=== PATIENT | male | born 1950 | race Caucasian/White ===

== ENCOUNTER 2018-03-29 00:34 | Emergency (ER) | payer MEDICARE, OTHER ==
[~2018-03-29] VITALS: Ht 177.8 cm; Wt 80.7 kg
[~2018-03-29 00:34] MED LIST: ALPR0.5T PO; CIPR500T78 PO; CLON-378 PO; FAMO20TA5 PO; HYDR-91 PO; HYOS0.1216 PO; NITR-33 PO; PHEN200T27 PO; PROP20TA5 PO; TMSL.4C PO
[2018-03-29] MEDS ORDERED: LIDOCAINE UROJET 2% GEL 10 ML PKG TOP ONE (01:30)
--- NOTE | 2018-03-29 01:49 | ED GU-Male ---
General Chief Complaint: -Male Stated Complaint: CAN'T URINATE Nursing Triage Note: PT PRESENTS TO ER WITH THE COMPLAINT OF URINARY RETENTION. PT STATES HE WAS SEEN ON SATURDAY IN [facility] FOR RETENTION, WAS GIVEN CIPRO FOR UTI AND CATHETER PLACED. SAW DR ROMAN SATURDAY IN OFFICE, CATHETER WAS REMOVED AND SCHEDULED FOR PROSTRATE TESTING NEXT WEEK. PT WAS INSTRUCTED BY JESSIE TO COME TO ER IF HE COULD NOT URINATE TO HAVE ANOTHER CATHETER PLACED. Source: patient Exam Limitations: no limitations History of Present Illness Date Seen by Provider: Mar 29, 2018 Time Seen by Provider: 01:15 Initial Comments This 68 year old gentleman presents to emergency room with urinary retention. This has been an ongoing problem for him for the past few years. He is presently taking Flomax and under the treatment and workup of Dr. Lopez. Patient had a catheter placed for urinary retention on a recent trip. He presented to Dr. Lopez's office yesterday to have the catheter removed. He was instructed to present to the emergency room if he had problems after hours. Patient was initially able to urinate after catheter removal but his ability to urinate has diminished throughout the day. He is now very uncomfortable and unable to urinate. Allergies and Home Medications Allergies Coded Allergies: No Known Drug Allergies (Unverified , 01/05/14) Home Medications Alprazolam 0.5 Mg Tablet, 0.25 MG PO PRN PRN for ANXIETY, (Reported) Clonidine Hcl 0.2 Mg Tab, 0.2 MG PO DAILY, (Reported) Famotidine 20 Mg Tablet, 1 EACH PO BID Prescribed by: SHASHANK ARANDA on 04/25/14 1226 Hydrocodone Bit/Acetaminophen 1 Each Tablet, 1-2 EA PO Q4HR PRN Prescribed by: TOMY HART on 01/26/14 0958 Propranolol Hcl 20 Mg Tablet, 20 MG PO PRN PRN for PALPITATIONS, (Reported) Tamsulosin Hcl 0.4 Mg Cap, 0.4 MG PO DAILY Prescribed by: CHIDI WEST on 01/06/14 0829 Patient Home Medication List Home Medication List Reviewed: Yes Review of Systems Constitutional: no symptoms reported Genitourinary: see HPI Past Iouwbas-Gebvlg-Qruxqc Hx Patient Social History Alcohol Use: Denies Use Recreational Drug Use: No Smoking Status: Never a Smoker Recent Foreign Travel: No Contact w/Someone Who Travel: No Recent Infectious Disease Expo: No Recent Hopitalizations: No Immunizations Up To Date Tetanus Booster (TDap): Unknown PED Vaccines UTD: Yes Seasonal Allergies Seasonal Allergies: No Past Medical History Surgeries: Yes (CYSTO, BACK SX, TUMOR REMOVED FROM LEFT SHOULDER, KIDNEY STONE) Respiratory: No Cardiac: Yes Hypertension Neurological: Yes Genitourinary: Yes (urinary retention) Benign Prostatic Hyperpl, Kidney Stones Gastrointestinal: No Musculoskeletal: No Endocrine: No HEENT: No Cancer: No Psychosocial: Yes Anxiety Blood Disorders: No Physical Exam Vital Signs Vital Signs - First Documented 03/29/18 00:39 Temp 97.1 Pulse 78 Resp 20 B/P (MAP) 204/105 (138) Pulse Ox 97 O2 Delivery Room Air Capillary Refill : Less Than 3 Seconds Height, Weight, BMI Height: 5'10.00" Weight: 178lbs. oz. 80.783686sh; BMI Method:Stated General Appearance: WD/WN, mild distress HEENT: normal ENT inspection Cardiovascular: regular rate, rhythm, no edema, no murmur Respiratory: lungs clear, normal breath sounds, no respiratory distress Gastrointestinal: normal bowel sounds, soft, tenderness (suprapubic) Neurologic/Psychiatric: alert, normal mood/affect, oriented x 3 Skin: normal color, warm/dry Progress/Results/Core Measures Suspected Sepsis Recent Fever Within 48 Hours: No Infection Criteria Present: None New/Unexplained Altered Menta: No Sepsis Screen: No Definite Risk SIRS Temperature:97.1 Pulse: 78 Respiratory Rate: 20 Blood Pressure 204 /105 Mean: 138 Results/Orders Lab Results Laboratory Tests Test 03/29/18 01:46 Range/Units Urine Color YELLOW Urine Clarity CLEAR Urine pH 7 5-9 Urine Specific Gerlaw 1.015 L 1.016-1.022 Urine Protein NEGATIVE NEGATIVE Urine Glucose (UA) NEGATIVE NEGATIVE Urine Ketones NEGATIVE NEGATIVE Urine Nitrite POSITIVE H NEGATIVE Urine Bilirubin NEGATIVE NEGATIVE Urine Urobilinogen NORMAL NORMAL MG/DL Urine Leukocyte Esterase NEGATIVE NEGATIVE Urine RBC (Auto) NEGATIVE NEGATIVE Urine RBC NONE /HPF Urine WBC NONE /HPF Urine Squamous Epithelial Cells RARE /HPF Urine Crystals NONE /LPF Urine Bacteria NEGATIVE /HPF Urine Casts NONE /LPF Urine Mucus NEGATIVE /LPF Urine Culture Indicated NO My Orders Orders - DANIELLE DIEHL MD Lidocaine 2% (Urojet) (Xylocaine Urojet) (03/29/18 01:30) Ua Culture If Indicated (03/29/18 01:24) Medications Given in ED Current Medications Medications Dose Ordered Sig/Norberto Route Start Time Stop Time Status Last Admin Dose Admin Lidocaine HCl 10 ml ONCE ONCE TOP 03/29/18 01:30 03/29/18 01:31 DC 03/29/18 02:00 10 ML Vital Signs/I&O 03/29/18 03/29/18 00:39 02:49 Temp 97.1 97.1 Pulse 78 78 Resp 20 20 B/P (MAP) 204/105 (138) 180/93 (138) Pulse Ox 97 97 O2 Delivery Room Air Capillary Refill : Less Than 3 Seconds Blood Pressure Mean: 138 Progress Note : Progress Note Cooney catheter was placed without any difficulty. Patient had immediate relief. UA demonstrated no evidence of infection. Patient had notable hypertension. He reports he is often hypertensive when anxious or in healthcare encounters. He treats this with clonidine and has his medication with him. He took a dose of clonidine while in the exam room. Patient was dismissed with catheter in place with instructions to follow-up with Dr. Lopez. Departure Impression Primary Impression: Urinary retention Additional Impression: Hypertensive urgency Disposition: HOME, SELF-CARE Condition: Improved Departure-Patient Inst. Decision time for Depature: 02:15 Referrals: NO,LOCAL PHYSICIAN (PCP/Family) Primary Care Physician Patient Instructions: How to Care for Your Cooney Catheter, Male Add. Discharge Instructions: Leave the Cooney catheter in place and keep the bag lower than the level of your bladder. Follow-up with Dr. Lopez as soon as possible. Continue with your blood pressure medications as prescribed. Follow-up with your primary care provider for a repeat blood pressure check. All discharge instructions reviewed with patient and/or family. Voiced understanding. Copy Copies To 1: BERNIE LOPEZ MD, JOSHUA T MD Mar 29, 2018 01:49
[2018-03-29 01:54] LABS: BILIRUBIN,URINE NEGATIVE (NEGATIVE); CLARITY,URINE CLEAR; COLOR,URINE YELLOW; GLUCOSE, URINE (UA) NEGATIVE (NEGATIVE); KETONES,URINE NEGATIVE (NEGATIVE); LEUKOCYTE ESTERASE ,URINE NEGATIVE (NEGATIVE); NITRITE,URINE POSITIVE (NEGATIVE); PH,URINE 7 (5-9); PROTEIN,URINE NEGATIVE (NEGATIVE); UROBILINOGEN,URINE NORMAL (NORMAL)
[2018-03-29 02:03] LABS: BACTERIA,URINE NEGATIVE /HPF; SQUAMOUS EPITHELIAL CELL,UR RARE /HPF
[2018-03-29 02:49] VITALS: BP 180/93
--- OUTSIDE RECORDS SUMMARY | 2018-03-30 11:10 | XMS REPORT | Continuity of Care Document ---
Author Author [facility] Organization [facility] Address Unknown Phone Unavailable Allergies Active Description Code Type Severity Reaction Onset Reported/Identified Relationship to Patient Clinical Status Yes No Known Drug Allergies [id number] Drug Allergy Unknown N/A 01/05/2014 Medications There is no data. Problems Date Dx Coded Attending Type Code Diagnosis Diagnosed By 01/06/2014 BERNIE LOPEZ MD Ot 592.0 CALCULUS OF KIDNEY 01/06/2014 BERNIE LOPEZ MD Ot 592.1 CALCULUS OF URETER 01/06/2014 BERNIE LOPEZ MD Ot 593.9 RENAL URETERAL DIS NOS 01/26/2014 BERNIE LOPEZ MD, Ot 592.0 CALCULUS OF KIDNEY 04/25/2014 SHASHANK ARANDA DO Ot 300.00 ANXIETY STATE NOS 04/25/2014 SHASHANK ARANDA DO Ot 530.81 ESOPHAGEAL REFLUX 04/25/2014 SHASHANK ARANDA DO Ot 786.50 CHEST PAIN NOS 07/25/2014 BERNIE LOPEZ MD Ot 592.9 URINARY CALCULUS NOS 03/29/2018 BERNIE LOPEZ MD Ot 592.9 URINARY CALCULUS NOS 03/29/2018 BERNIE LOPEZ MD Ot 793.6 NOSP (ABN) FINDINGS ON RADIOLOGICAL OT 03/29/2018 BERNIE LOPEZ MD Ot 592.1 CALCULUS OF URETER 03/29/2018 BERNIE LOPEZ MD Ot V72.63 PRE-PROCEDURAL LABORATORY EXAMINATION 03/29/2018 BERNIE LOPEZ MD, Ot V72.81 PRMA-ZRA-PTNDOXQIK CARDIOVASCULAR 03/29/2018 BERNIE LOPEZ MD, Ot V72.83 EXAM PRE-OPERATIVE NEC 03/29/2018 BERNIE LOPEZ MD, Ot V72.84 EXAM PRE-OPERATIVE NOS 03/29/2018 BERNIE LOPEZ MD, Ot V74.8 SCREEN-BACTERIAL DIS NEC 03/29/2018 BERNIE LOPEZ MD Ot 592.0 CALCULUS OF KIDNEY 03/29/2018 BERNIE LOPEZ MD Ot V72.63 PRE-PROCEDURAL LABORATORY EXAMINATION 03/29/2018 BERNIE LOPEZ MD Ot V72.84 EXAM PRE-OPERATIVE NOS 03/29/2018 BERNIE LOPEZ MD Ot 592.0 CALCULUS OF KIDNEY 03/29/2018 Ot 592.9 URINARY CALCULUS NOS 03/29/2018 BERNIE LOPEZ MD Ot 592.9 URINARY CALCULUS NOS 03/29/2018 BERNIE LOPEZ MD Ot 793.6 NOSP (ABN) FINDINGS ON RADIOLOGICAL OT 03/29/2018 BERNIE LOPEZ MD, Ot 592.1 CALCULUS OF URETER 03/29/2018 BERNIE LOPEZ MD, Ot V72.63 PRE-PROCEDURAL LABORATORY EXAMINATION 03/29/2018 BERNIE LOPEZ MD Ot V72.81 [id number] CARDIOVASCULAR 03/29/2018 BERNIE LOPEZ MD Ot V72.83 EXAM PRE-OPERATIVE NEC 03/29/2018 BERNIE LOPEZ MD Ot V72.84 EXAM PRE-OPERATIVE NOS 03/29/2018 BRENIE LOPEZ MD Ot V74.8 SCREEN-BACTERIAL DIS NEC 03/29/2018 BERNIE LOPEZ MD Ot 592.0 CALCULUS OF KIDNEY 03/29/2018 BERNIE LOPEZ MD, Ot V72.63 PRE-PROCEDURAL LABORATORY EXAMINATION 03/29/2018 BERNIE LOPEZ MD, Ot V72.84 EXAM PRE-OPERATIVE NOS 03/29/2018 BERNIE LOPEZ MD, Ot 592.0 CALCULUS OF KIDNEY 03/29/2018 Ot 592.9 URINARY CALCULUS NOS Procedures There is no data. Results Test Result Range Complete urinalysis with reflex to culture - 03/29/18 01:46 Urine color determination YELLOW NRG Urine clarity determination CLEAR NRG Urine pH measurement by test strip 7 5-9 Specific gravity of urine by test strip 1.015 1.016- 1.022 Urine protein assay by test strip, semi-quantitative NEGATIVE NEGATIVE Urine glucose detection by automated test strip NEGATIVE NEGATIVE Erythrocytes detection in urine sediment by light microscopy NEGATIVE NEGATIVE Urine ketones detection by automated test strip NEGATIVE NEGATIVE Urine nitrite detection by test strip POSITIVE NEGATIVE Urine total bilirubin detection by test strip NEGATIVE NEGATIVE Urine urobilinogen measurement by automated test strip (mass/volume) NORMAL NORMAL Urine leukocyte esterase detection by dipstick NEGATIVE NEGATIVE Automated urine sediment erythrocyte count by microscopy (number/high power field) NONE NRG Automated urine sediment leukocyte count by microscopy (number/high power field ) NONE NRG Bacteria detection in urine sediment by light microscopy NEGATIVE NRG Squamous epithelial cells detection in urine sediment by light microscopy RARE NRG Crystals detection in urine sediment by light microscopy NONE NRG Casts detection in urine sediment by light microscopy NONE NRG Mucus detection in urine sediment by light microscopy NEGATIVE NRG Complete urinalysis with reflex to culture NO NRG Encounters ACCT No. Visit Date/Time Discharge Status Pt. Type Provider Facility Loc./Unit Complaint [id number] 03/29/2018 00:37:00 03/29/2018 02:49:00 DIS Emergency DANIELLE DEIHL MD [facility] ER CAN'T URINATE [id number] 04/29/2014 08:43:00 07/25/2014 00:01:00 DIS Outpatient BERNIE LOPEZ MD [facility] RAD STONES [id number] 04/25/2014 11:16:00 04/25/2014 12:30:00 DIS Emergency SHASHANK ARANDA DO [facility] ER CHEST PAIN [id number] 02/15/2014 12:48:00 02/15/2014 23:59:59 CLS Outpatient BERNIE LOPEZ MD [facility] RAD RT MARY STONE [id number] 01/26/2014 06:21:00 01/26/2014 10:50:00 DIS Outpatient BERNIE LOPEZ MD [facility] SDC RIGHT STONE [id number] 01/25/2014 07:27:00 01/25/2014 23:59:59 CLS Outpatient BERNIE LOPEZ MD [facility] PREOP RIGHT STONE [id number] 01/06/2014 06:00:00 01/06/2014 11:15:00 DIS Outpatient BERNIE LOPEZ MD [facility] SDC RIGHT STONE [id number] 01/05/2014 10:36:00 01/05/2014 23:59:59 CLS Outpatient BERNIE LOPEZ MD [facility] PREOP RIGHT STONE [id number] 01/05/2014 08:50:00 01/05/2014 23:59:59 CLS Outpatient BERNIE LOPEZ MD [facility] RAD STONES [id number] 07/26/2014 00:00:00 Document Registration
== END 2018-03-29 02:49 | disposition home or self-care (01) ==
LOC: EDUNIT# 00:34 → ER 00:37
DX: R33.9 Retention of urine, unspecified (principal); I16.0 Hypertensive urgency; I10 Essential (primary) hypertension; F41.9 Anxiety disorder, unspecified; Z87.442 Personal history of urinary calculi
CPT/HCPCS: 51702; 81000

== ENCOUNTER 2018-04-04 12:48 | Outpatient (CLI) | payer MEDICARE, OTHER ==
[~2018-04-04] VITALS: Ht 177.8 cm; Wt 80.7 kg
[2018-04-04 13:01] VITALS: BP 129/85
[2018-04-04] MEDS ORDERED: PROP20TA5 PO (13:08)
[2018-04-04] MEDS ORDERED: ALPR0.254 PO (13:08)
[2018-04-04] MEDS ORDERED: CLON0.2T PO (13:08)
== END 2018-04-04 13:15 | disposition home or self-care (01) ==
LOC: PREOP 12:48
PROVIDERS: ATTEND Urology
DX: Z01.818 Encounter for other preprocedural examination (principal)
CPT/HCPCS: 87081

== ENCOUNTER 2018-04-07 06:00 | Day surgery (SDC) | payer MEDICARE, OTHER ==
[~2018-04-07] VITALS: Ht 177.8 cm; Wt 80.7 kg
[2018-04-07] VITALS (7 sets, daily range): BP systolic 159–210; BP diastolic 95–116
[~2018-04-07 06:00] MED LIST changes: +ALPR0.254 PO; +CLON0.2T PO
[2018-04-07 06:35] LABS: BASOPHILS % (AUTO) 1 % (0-10); EOSINOPHILS # (AUTO) 0.4 10^3/uL (0.0-0.3); EOSINOPHILS % (AUTO) 5 % (0-10); HEMATOCRIT 46 % (40-54); HEMOGLOBIN 15.7 G/DL (13.3-17.7); LYMPHOCYTES % (AUTO) 27 % (12-44); MEAN CORPUSCULAR HEMOGLOBIN 30 PG (25-34); MEAN CORPUSCULAR HGB CONC 34 G/DL (32-36); MEAN CORPUSCULAR VOLUME 88 FL (80-99); MEAN PLATELET VOLUME 10.1 FL (7.4-10.4); MONOCYTES # (AUTO) 1.2 X 10^3 (0.0-1.0); MONOCYTES % (AUTO) 17 % (0-12); NEUTROPHILS # (AUTO) 3.6 X 10^3 (1.8-7.8); NEUTROPHILS % (AUTO) 50 % (42-75); PLATELET COUNT 294 10^3/uL (130-400); RED BLOOD COUNT 5.28 10^6/uL (4.35-5.85); RED CELL DISTRIBUTION WIDTH 13.2 % (10.0-14.5); WHITE BLOOD COUNT 7.2 10^3/uL (4.3-11.0)
[2018-04-07] MEDS ORDERED: cefTRIAXone INJECTION 1,000 MG in NS (IVPB) 50 ML IV ONE (06:45)
[2018-04-07] MEDS ORDERED: MIDAZOLAM 2 MG/2 ML (VERSED) VIAL ONE ×2 (06:46→07:35)
[2018-04-07] MEDS ORDERED: LACTATED RINGERS 1,000 ML IV SCH (07:00)
[2018-04-07] MEDS ORDERED: MIDAZOLAM 2 MG/2 ML (VERSED) VIAL IVP ONE (07:00)
[2018-04-07] MEDS ORDERED: LIDOCAINE PF 2% 5 ML (XYLOCAINE) VIAL ONE ×2 (07:04→07:44)
[2018-04-07] MEDS ORDERED: proPOfol 200 MG/20 ML (DIPRIVAN) VIAL IV ONE (07:04)
[2018-04-07] MEDS ORDERED: BUPIVACAINE 0.5% 30 ML (SENSORCAINE) VIAL ONE (07:04)
[2018-04-07] MEDS ORDERED: PROPOFOL INJECTION 0 ML IV ONE (07:04)
--- NOTE | 2018-04-07 07:09 | Progress Note-Pre Operative ---
Pre-Operative Progress Note H&P Reviewed The H&P was reviewed, patient examined and no changes noted. Date Seen by Provider: Apr 07, 2018 Time Seen by Provider: 07:09 Date H&P Reviewed: Apr 07, 2018 Time H&P Reviewed: 07:09 Pre-Operative Diagnosis: URINE RETENTION WITH BPH BERNIE LOPEZ MD Apr 07, 2018 7:09 am
--- NOTE | 2018-04-07 07:11 | Progress Note-Post Operative ---
Post-Operative Progess Note Surgeon (s)/Surfacer (s) Surgeon BERNIE LOPEZ MD Surfacer: N/A Pre-Operative Diagnosis URINE RETENTION WITH BPH Post-Operative Diagnosis SAME Procedure & Operative Findings Date of Procedure 04/07/18 Procedure Performed/Findings TURP Anesthesia Type SPINAL Estimated Blood Loss Estimated blood loss (mL): LESS ROSALINE 50cc Specimens/Packing Specimens Removed PROSTATE CHIPS Packing: N/A BERNIE LOPEZ MD Apr 07, 2018 7:11 am
[2018-04-07] MEDS ORDERED: MILK OF MAGNESIA 400 MG/5 ML 30 ML UDC PO PRN (07:15)
[2018-04-07] MEDS ORDERED: ZOLPIDEM 5 MG (AMBIEN) TAB PO PRN (07:15)
[2018-04-07] MEDS ORDERED: LACTATED RINGERS 1,000 ML IV ONE (07:57)
[2018-04-07] MEDS: LACTATED RINGERS 1,000 ML IV SCH ×5 (08:10→23:08)
[2018-04-07] MEDS ORDERED: ALPRAZolam 0.25 MG (XANAX) TAB PO PRN (10:00)
[2018-04-07] MEDS ORDERED: PROPRANOLOL 20 MG (INDERAL) TABLET PO PRN ×2 (10:00→10:15)
[2018-04-07] MEDS ORDERED: PATIENT MAY USE OWN MEDS, ALL MC SCH (10:15)
[2018-04-07] MEDS: DOCUSATE SODIUM 100 MG (COLACE) CAP PO SCH ×2 (10:16→21:01)
[2018-04-07] MEDS: cloNIDine 0.2 MG (CATAPRES) TAB PO SCH ×2 (10:20→21:01)
[2018-04-07] MEDS: ALPRAZolam 0.25 MG (XANAX) TAB PO PRN ×2 (10:34→18:59)
--- NOTE | 2018-04-07 13:08 | OPERATIVE REPORT ---
DATE OF SERVICE: 04/07/2018 PREOPERATIVE DIAGNOSIS: Benign prostatic hypertrophy with urinary retention. POSTOPERATIVE DIAGNOSIS: Benign prostatic hypertrophy with urinary retention. OPERATION PERFORMED: Transurethral resection of the prostate. SURGEON: Bernie Lopez MD. ANESTHESIA: Spinal. COMPLICATIONS: None. DESCRIPTION OF PROCEDURE: Under satisfactory spinal anesthesia, the patient in lithotomy position, genitalia were prepped and draped in the usual sterile fashion. Urethra was dilated with Dulce Maria sounds to #30 Egyptian easily, 27-Egyptian Fields resectoscope was introduced in the bladder. Again, visualized a trilobar enlargement of the prostate with the median lobe projecting and causing obstruction. I went ahead and resected the median lobe first completely, then resected the lateral lobe from 1-6 o'clock position, starting from the roof and then working down to the apex. Bleeders were cauterized as the resection was proceeding. Prostatic chips were evacuated and cystoscopy confirmed intact ureteric orifices, veru and sphincter with good reflux. The resectoscope was then removed and a 22-Egyptian 3-way 30 mL balloon catheter was inserted. The balloon inflated to 40 mL and put on light traction and CBI the return of which was clear. Estimated blood loss was less than 50 mL, none of which was replaced. The patient tolerated the procedure and anesthesia well and was sent to recovery room in stable condition. Job ID: [id number] DocumentID: [id number] Dictated Date: 04/07/2018 08:43:39 Straight Ruling Machine Operator Date: 04/07/2018 13:08:01 Dictated By: BERNIE LOPEZ MD
[2018-04-07] MEDS: HYDROcodone/APAP 10 MG/325 MG (LORTAB) TAB PO PRN ×2 (13:23→21:06)
--- NOTE | 2018-04-07 14:34 | Anesthesia-Regional Post-Op ---
Regional Patient Condition Mental Status: Alert, Oriented x3 Circulation: Same as Pre-Op Headache: Absent Sensation: Full Recovery Motor Block: Absent Post Op Complications Complications None Follow Up Care/Instructions Patient Instructions None needed. Anesthesia/Patient Condition Patient is doing well, no complaints, stable vital signs, no apparent adverse anesthesia problems. No complications reported per nursing. CLAUDIA HOUSE CRNA Apr 07, 2018 14:34
[2018-04-07] MEDS ORDERED: NITROGLYCERIN 2% OINT 1 GM UNIT DOSE PACKET ONE (15:51)
[2018-04-07] MEDS: NITROGLYCERIN 2% OINT 1 GM UNIT DOSE PACKET TOP PRN ×2 (15:57→21:46)
[2018-04-07] MEDS ORDERED: PHENAZOPYRIDINE 100 MG (PYRIDIUM) TABLET PO PRN (16:15)
[2018-04-07] MEDS ORDERED: LIDOCAINE UROJET 2% GEL 10 ML PKG TOP PRN (16:15)
[2018-04-07] MEDS ORDERED: KETOROLAC 30 MG/ML VIAL IVP PRN (16:15)
[2018-04-07] MEDS ORDERED: hydrALAZINE (APESOLINE) 20 MG/ML VIAL IV NR ×2 (17:00→19:15)
[2018-04-07] MEDS ORDERED: NITROGLYCERIN 2% OINT 1 GM UNIT DOSE PACKET TOP SCH (18:00)
[2018-04-08] VITALS (8 sets, daily range): BP systolic 113–183; BP diastolic 71–89
[2018-04-08] MEDS: LACTATED RINGERS 1,000 ML IV SCH (06:22)
[2018-04-08] MEDS ORDERED: LEVOFLOXACIN 500 MG/100 ML IV 100 ML IV ONE (07:15)
[2018-04-08] MEDS: cloNIDine 0.2 MG (CATAPRES) TAB PO SCH (07:31)
[2018-04-08] MEDS: ALPRAZolam 0.25 MG (XANAX) TAB PO PRN (07:32)
[2018-04-08] MEDS: DOCUSATE SODIUM 100 MG (COLACE) CAP PO SCH (07:34)
[2018-04-08] MEDS: NITROGLYCERIN 2% OINT 1 GM UNIT DOSE PACKET TOP PRN (07:35)
--- NOTE | 2018-04-08 07:48 | Progress Note-Urology ---
Progress Note-Urology Progress Notes/Assess & Plan Progress/Assessment & Plan AFEBRILE, VSS. DOING WELL. URINE TINGED. PLAN PER ORDERS Final Diagnosis BPH WITH URINE RETENTION BERNIE LOPEZ MD Apr 08, 2018 7:48 am
--- NOTE | 2018-04-08 10:27 | Consultation-Hospitalist ---
HPI History of Present Illness: HPI/Chief Complaint Pt is a 68yoCM with a PMH of HTN who underwent TURP yesterday with Dr Adkins. I am consulted for medical management. Postoperatively he developed severe hypertension but was asymptomatic. He had held his morning BP in preparation for surgery but otherwise has not missed any medications. He states he was very anxious with the BP checks and felt that that may be why it was so high. His BP improved overnight after two dose of IV Hydralazine and nitropaste. His blood pressure was elevated this morning again prior to his AM medications. He still denies any symptoms and at home his BP is very well controlled. Source: patient Exam Limitations: no limitations Date Seen 04/08/18 Attending Physician Gwyn Adkins MD PCP No,Local Physician Referring Physician Dr Adkins Date of Admission Home Medications & Allergies Home Medications Reviewed patient Home Medication Reconciliation performed by pharmacy medication reconciliations small electric engine technician and/or nursing. Patients Allergies have been reviewed. Allergies Allergies Coded Allergies morphine (Verified Allergy, Unknown, NAUSEA, 04/04/18) sulfamethoxazole (Verified Allergy, Unknown, hives, 04/04/18) trimethoprim (Verified Allergy, Unknown, hives, 04/04/18) Past Zkrkftl-Zwfrch-Dxtmsq Hx Past Med/Social Hx: Reviewed Nursing Past Med/Soc Hx Patient Social History Alcohol Use: Denies Use Recreational Drug Use: No Smoking Status: Former Smoker Former Smoker, Quit: Apr 04, 1979 Recent Foreign Travel: No Contact w/other who traveled: No Recent Hopitalizations: No Recent Infectious Disease Expo: No Immunizations Up To Date Tetanus Booster (TDap): Unknown Pediatric: Yes Seasonal Allergies Seasonal Allergies: No Past Medical History Cardiac: Hypertension Genitourinary: Benign Prostatic Hyperpl, Kidney Stones Psychosocial: Anxiety History of Blood Disorders: No Family History Hypertension 19 FATHER Review of Systems Constitutional: No chills, No fever EENTM: No blurred vision, No double vision, No nose congestion, No throat pain Respiratory: No cough, No dyspnea on exertion, No short of breath Cardiovascular: No chest pain, No edema, No palpitations Gastrointestinal: No abdominal pain, No constipation, No diarrhea, No nausea, No vomiting Genitourinary: No dysuria, No frequency Musculoskeletal: No joint pain, No muscle pain Skin: No lesions, No rash Psychiatric/Neurological: Anxiety; Denies Headache, Denies Numbness, Denies Tingling Physical Exam Physical Exam Vital Signs Vital Signs - First Documented 04/07/18 06:20 Temp 97.7 Pulse 65 Resp 18 B/P (MAP) 209/114 (145) 208/116 (146) Pulse Ox 99 O2 Delivery Room Air Capillary Refill : Height, Weight, BMI Height: 5'10.00" Weight: 178lbs. 0.0oz. 80.283724me; 25.5 BMI Method:Stated General Appearance: No Apparent Distress, WD/WN HEENT: PERRL/EOMI, Moist Mucous Membranes Neck: Non Tender, Supple Respiratory: Lungs Clear, No Respiratory Distress Cardiovascular: Regular Rate, Rhythm, No Murmur Gastrointestinal: Normal Bowel Sounds, Non Tender, Soft Extremity: Normal Capillary Refill, No Calf Tenderness Neurologic/Psychiatric: Alert, Oriented x3, Normal Mood/Affect Skin: Normal Color, Warm/Dry Results Results/Procedures Labs Laboratory Tests 04/07/18 06:25 Patient resulted labs reviewed. Assessment/Plan Assessment and Plan Assess & Plan/Chief Complaint Hypertensive urgency Diagnosis/Problems Diagnosis/Problems (1) Hypertensive urgency Assessment & Plan: asymptomatic BP improving Anxiety likely contributing so will decrease checks Continue home meds Nitropaste available prn (2) BPH (benign prostatic hyperplasia) Status: Chronic Assessment & Plan: s/p TURP Management per Dr Adkins Clinical Quality Measures DVT/VTE Risk/Contraindication: Risk Factor Score Per Nursin RFS Level Per Nursing on Admit: 3=High JOSHUA AUGUSTE MD Apr 08, 2018 10:27 am
[2018-04-08] MEDS ORDERED: ONDANSETRON 4 MG/2 ML (SDV) Z0FRAN IVP NR ×2 (11:44→11:45)
--- NOTE | 2018-04-08 11:45 | Discharge Inst-Urology ---
Discharge Inst-Urology Discharge Medications New, Converted, or Re-newed RX: RX on Chart Patient Instructions/Follow Up Plan Please make appointment to been seen in office in 2 weeks. Rest till then Please get patient appointment with Dr Manish Fields to establish as new patient Keep bowels soft and moving Increase oral fluids for 48 hours and then as needed. Diet as tolerated. If questions or concerns contact your physician Or seek help at emergency department. BERNIE LOPEZ MD Apr 08, 2018 11:45 am
[2018-04-08] MEDS ORDERED: CIPR-225 PO (12:11)
[2018-04-08] MEDS ORDERED: ONDA4TAB8 SL (12:12)
== END 2018-04-08 12:45 ==
LOC: SDC 06:00 → 4TH 09:38 → SDC 04-08 12:45
PROVIDERS: ATTEND Urology
DX: N40.1 Benign prostatic hyperplasia with lower urinary tract symptoms (principal); R33.9 Retention of urine, unspecified; I16.0 Hypertensive urgency; I49.9 Cardiac arrhythmia, unspecified; F41.9 Anxiety disorder, unspecified; Z87.442 Personal history of urinary calculi; Z79.899 Other long term (current) drug therapy
CPT/HCPCS: 36415; 85025; 86850; 86900; 86901; 94664

== ENCOUNTER 2018-04-14 03:48 | Inpatient (IN) | payer MEDICARE, OTHER ==
[~2018-04-14] VITALS: Ht 177.8 cm; Wt 77.3 kg
[2018-04-14] VITALS (24 sets, daily range): BP systolic 107–204; BP diastolic 56–132
[~2018-04-14 03:48] MED LIST changes: +CIPR-225 PO; +ONDA4TAB8 SL
[2018-04-14] MEDS ORDERED: NITROGLYCERIN 0.4 MG SL TABS BTL 25'S SL ONE (03:58)
[2018-04-14] MEDS ORDERED: FAMOTIDINE 20 MG (PEPCID) TABLET PO STA (03:58)
[2018-04-14] MEDS ORDERED: ASPIRIN 81 MG CHEW (CHILDREN'S ASA) ONE (03:58)
[2018-04-14] MEDS ORDERED: ANTACID SUSP 30 ML UDC (MYLANTA) PO ONE (04:00)
[2018-04-14] MEDS ORDERED: ASPIRIN 81 MG CHEW (CHILDREN'S ASA) PO ONE (04:00)
[2018-04-14] MEDS ORDERED: LIDOCAINE 2% VISCOUS 15 ML UDC PO ONE (04:00)
--- NOTE | 2018-04-14 04:06 | ED Chest Pain ---
General Chief Complaint: Chest Pain Stated Complaint: CP Source: patient Exam Limitations: no limitations History of Present Illness Date Seen by Provider: Apr 14, 2018 Time Seen by Provider: 03:53 Initial Comments The patient presents to the ER by private conveyance with his and a chief complaint of chest pain starting about 1:00 this morning. He noted for the past day or so he's been having high blood pressure above 200 systolic. He does not have any prior coronary disease but last week he did have a TURP. While he was in the hospital for that he had some high blood pressure and they gave him a couple other medications but couldn't get it down and talked to to stress or anxiety. He does have some anxiety and a little bit of acid reflux for which she infrequently takes Zantac. He's not had any Zantac today. He does have high blood pressure however that he treats with clonidine twice a day unknown dose. He says he took an extra half dose at midnight and another half dose at 2:00 in the morning because his blood pressure was elevated. He describes the chest pain as a burning sensation in his midepigastrium up to his sternum. He is also having some numbness and tingling in his left arm. He's never had a heart catheterization. He does not smoke but he quit about 30 years ago. He does not have hyperthyroid, hypothyroid, hypercholesterolemia, diabetes. He also has propranolol prescribed to him as needed for palpitations but he has not used that in several days. Allergies and Home Medications Allergies Coded Allergies: morphine (Verified Allergy, Unknown, NAUSEA, 04/04/18) sulfamethoxazole (Verified Allergy, Unknown, hives, 04/04/18) trimethoprim (Verified Allergy, Unknown, hives, 04/04/18) Home Medications Alprazolam 0.25 Mg Tablet, 0.25 MG PO BID PRN for ANXIETY, (Reported) Ciprofloxacin HCl 500 Mg Tablet, 500 MG PO BID Prescribed by: JOSE RODRIGEZ on 04/08/18 1211 Clonidine HCl 0.2 Mg Tablet, 0.1 MG PO BID, (Reported) take 1/2 of .2mg tab Ondansetron 4 Mg Tab.rapdis, 4-8 MG SL Q4H PRN for NAUSEA/VOMITING-1ST LINE Prescribed by: JOSE RODRIGEZ on 04/08/18 1212 Propranolol HCl 20 Mg Tablet, 20 MG PO BID PRN for palpitations, (Reported) Patient Home Medication List Home Medication List Reviewed: Yes Review of Systems Constitutional: No chills, No diaphoresis EENTM: No Blurred Vision, No Nose Congestion, No Throat Pain, No Throat Swelling Respiratory: Denies Cough, Denies Shortness of Air Cardiovascular: See HPI, Chest Pain; Denies Edema, Denies Irregular Heart Rate , Denies Lightheadedness, Denies Palpitations, Denies Syncope Gastrointestinal: Denies Abdomen Distended, Denies Abdominal Pain, Denies Constipated, Denies Diarrhea Genitourinary: Denies Burning, Denies Discharge Musculoskeletal: No back pain, No gout Skin: No pruritus, No rash Psychiatric/Neurological: Denies Headache, Denies Numbness Hematologic/Lymphatic: Denies Anemia, Denies Blood Clots, Denies Easy Bleeding Past Vwsgshn-Wqvcdu-Jkubyw Hx Patient Social History Alcohol Use: Denies Use Recreational Drug Use: No Smoking Status: Former Smoker Former Smoker, Quit: Apr 04, 1979 Recent Hopitalizations: No Immunizations Up To Date Tetanus Booster (TDap): Unknown PED Vaccines UTD: Yes Seasonal Allergies Seasonal Allergies: No Past Medical History Surgeries: Yes (CYSTO, BACK SX, TUMOR REMOVED FROM LEFT SHOULDER, KIDNEY STONE) Respiratory: No Cardiac: Yes Hypertension Neurological: Yes Genitourinary: Yes (urinary retention) Benign Prostatic Hyperpl, Kidney Stones Gastrointestinal: No Musculoskeletal: No Endocrine: No HEENT: No Cancer: No Psychosocial: Yes Anxiety Blood Disorders: No Family Medical History Hypertension 19 FATHER Physical Exam Vital Signs Vital Signs - First Documented 04/14/18 03:50 Temp 98.2 Pulse 61 Resp 14 B/P (MAP) 239/125 (163) Pulse Ox 99 O2 Delivery Room Air Capillary Refill : Less Than 3 Seconds Height, Weight, BMI Height: 5'10.00" Weight: 178lbs. 0.0oz. [id number]; 25.5 BMI Method:Stated General Appearance: WD/WN, Anxious HEENT: PERRL/EOMI, Pharynx Normal, Moist Mucous Membranes Neck: Full Range of Motion, Normal Inspection Respiratory: Chest Non Tender, Lungs Clear, Normal Breath Sounds, No Accessory Muscle Use, No Respiratory Distress Cardiovascular: Regular Rate, Rhythm, No Edema, No Murmur, Normal Peripheral Pulses Gastrointestinal: Normal Bowel Sounds, Non Tender, Soft Extremity: Normal Capillary Refill, Normal Inspection, Normal Range of Motion, No Pedal Edema Neurologic/Psychiatric: Alert, Oriented x3, No Motor/Sensory Deficits, Other ( anxious affect) Skin: Normal Color, Warm/Dry Progress/Results/Core Measures Results/Orders Lab Results Laboratory Tests Test 04/14/18 04:12 Range/Units White Blood Count 5.9 4.3-11.0 10^3/uL Red Blood Count 4.98 4.35-5.85 10^6/uL Hemoglobin 15.3 13.3-17.7 G/DL Hematocrit 43 40-54 % Mean Corpuscular Volume 85 80-99 FL Mean Corpuscular Hemoglobin 31 25-34 PG Mean Corpuscular Hemoglobin Concent 36 32-36 G/DL Red Cell Distribution Width 12.6 10.0-14.5 % Platelet Count 345 130-400 10^3/uL Mean Platelet Volume 10.4 7.4-10.4 FL Neutrophils (%) (Auto) 59 42-75 % Lymphocytes (%) (Auto) 25 12-44 % Monocytes (%) (Auto) 12 0-12 % Eosinophils (%) (Auto) 4 0-10 % Basophils (%) (Auto) 1 0-10 % Neutrophils # (Auto) 3.4 1.8-7.8 X 10^3 Lymphocytes # (Auto) 1.5 1.0-4.0 X 10^3 Monocytes # (Auto) 0.7 0.0-1.0 X 10^3 Eosinophils # (Auto) 0.2 0.0-0.3 10^3/uL Basophils # (Auto) 0.0 0.0-0.1 10^3/uL Prothrombin Time 13.7 12.2-14.7 SEC INR Comment 1.1 0.8-1.4 Activated Partial Thromboplast Time 33 24-35 SEC Sodium Level 138 135-145 MMOL/L Potassium Level 3.9 3.6-5.0 MMOL/L Chloride Level 105 98-107 MMOL/L Carbon Dioxide Level 20 L 21-32 MMOL/L Anion Gap 13 5-14 MMOL/L Blood Urea Nitrogen 14 7-18 MG/DL Creatinine 0.80 0.60-1.30 MG/DL Estimat Glomerular Filtration Rate > 60 BUN/Creatinine Ratio 18 Glucose Level 116 H 70-105 MG/DL Calcium Level 10.1 8.5-10.1 MG/DL Magnesium Level 2.1 1.8-2.4 MG/DL Total Bilirubin 1.1 H 0.1-1.0 MG/DL Aspartate Amino Transf (AST/SGOT) 16 5-34 U/L Alanine Aminotransferase (ALT/SGPT) 22 0-55 U/L Alkaline Phosphatase 74 40-136 U/L Myoglobin 24.9 10.0-92.0 NG/ML Troponin I < 0.30 <0.30 NG/ML Total Protein 7.0 6.4-8.2 GM/DL Albumin 4.5 3.2-4.5 GM/DL Lipase 12 8-78 U/L My Orders Orders - KARMA LYONS Cbc With Automated Diff (04/14/18 03:58) Magnesium (04/14/18 03:58) Chest 1 View, Ap/Pa Only (04/14/18 03:58) Ekg Tracing (04/14/18 03:58) Cardiac Profile 1 (04/14/18 03:58) Comprehensive Metabolic Panel (04/14/18 03:58) Myoglobin Serum (04/14/18 03:58) Protime With Inr (04/14/18 03:58) Partial Thromboplastin Time (04/14/18 03:58) O2 (04/14/18 03:58) Monitor-Rhythm Ecg Trace Only (04/14/18 03:58) Lipid Panel (04/15/18 06:00) Aspirin Chewable Tablet (Baby Aspirin Ch (04/14/18 04:00) Nitroglycerin 0.4 Mg Btl 25's (Nitrostat (04/14/18 04:00) Saline Lock/Iv-Start (04/14/18 03:58) Lipase (04/14/18 03:58) Lidocaine 2% Viscous 15 Ml (Xylocaine Vi (04/14/18 04:00) Famotidine Tablet (Pepcid Tablet) (04/14/18 03:58) Antacid Suspension (Mylanta Suspension (04/14/18 04:00) Nitroglycerin 0.4 Mg Btl 25's (Nitrostat (04/14/18 03:58) Aspirin Chewable Tablet (Baby Aspirin Ch (04/14/18 03:58) Medications Given in ED Current Medications Medications Dose Ordered Sig/Norberto Route Start Time Stop Time Status Last Admin Dose Admin Al Hydrox/Mg Hydrox/Simethicone 30 ml ONCE ONCE PO 04/14/18 04:00 04/14/18 04:02 DC 04/14/18 04:13 30 ML Aspirin 324 mg ONCE ONCE PO 04/14/18 04:00 04/14/18 04:02 DC 04/14/18 04:13 324 MG Lidocaine HCl 15 ml ONCE ONCE PO 04/14/18 04:00 04/14/18 04:02 DC 04/14/18 04:13 15 ML Nitroglycerin 0.4 mg UD PRN SL 04/14/18 04:00 04/14/18 04:14 0.4 MG Vital Signs/I&O 04/14/18 04/14/18 04/14/18 04/14/18 03:50 03:50 04:13 04:16 Temp 98.2 98.2 98.2 Pulse 61 Resp 14 B/P (MAP) 239/125 (163) Pulse Ox 99 O2 Delivery Room Air Room Air Progress Progress Note #1: Time: 04:04 Progress Note Hypertension plus chest pain equals hypertensive emergency. We'll start with a dose of nitroglycerin and see what that does for him. His heart rate is already on the low end around 60 so beta blockers may not be the best choice. We could try nitroglycerin paste if his blood pressure doesn't go down after the first dose of nitroglycerin and some rest. We'll obtain a set of labs for a cardiac workup. No evidence of any acute ischemia on the initial EKG. We'll get a chest x-ray and review his history. He's already had an extra fold dose of clonidine so other options would include hydralazine, Jasen inhibitors, nitroglycerin paste. Please not showing any clinical evidence of heart failure. No history of echocardiograms or catheterizations. ED ACS 23 points. Not low risk. This patient is not a candidate for early discharge and should receive a standard chest pain evaluation with delayed troponin testing. Is currently rating his pain 2 out of 10 so we'll start with just 1 dose of nitroglycerin and after about 5 or 10 minutes we'll also give him a GI cocktail since he describes the pain as starting in the midepigastrium and radiating up to his mid sternum and in a burning sensation. We'll also give him some Pepcid. Progress Note #2: Time: 04:21 Progress Note A few minutes after giving the nitroglycerin his blood pressure systolic dropped from 235 down to 140s to 150s and is now around 120s systolic with a diastolic in the 80s. His pain was nearly instantly relieved with nitroglycerin from 2 out of 10 down to 0 out of 10. GI cocktail was given. The rapidity of his blood pressure lowering is probably more consistent with anxiolysis than the potency of 0.4 mg nitroglycerin. Initial ECG Impression Date: Apr 14, 2018 Initial ECG Impression Time: 03:53 Initial ECG Rate: 59 Initial ECG Rhythm: Normal Sinus Initial ECG Intervals: Normal Initial ECG Impression: Normal Initial ECG Comparisson: Unchanged Comment No ST elevation or depression. Diagnostic Imaging Diagonstic Imaging: Xray Plain Films/CT/US/NM/MRI: chest (1v) Comments Chest x-ray without acute cardiopulmonary processes noted. Unchanged from 2013 2 view chest x-ray. Reviewed: Reviewed by Me Departure Communication (Admissions) Time/Spoke to Admitting Phy: 05:00 Discussed case lab EKG imaging and findings with Dr. Salmon and she agrees to admit the patient will see him in the morning. Time/Spoke to Consulting Phy: 04:58 Discussed case lab imaging EKG and findings with Dr. Sawyer and he agrees with observation stay cardiac stepdown with an echocardiogram this morning. Impression Primary Impression: Chest pain Qualified Codes: R07.9 - Chest pain, unspecified Additional Impression: Hypertensive emergency Disposition: 09 ADMITTED INPATIENT Condition: Improved Admissions Decision to Admit Reason: Admit from ER (General) Decision to Admit/Date: Apr 14, 2018 Time/Decision to Admit Time: 05:00 Departure-Patient Inst. Referrals: NO,LOCAL PHYSICIAN (PCP/Family) Primary Care Physician KARMA LYONS Apr 14, 2018 04:06
[2018-04-14] MEDS: NITROGLYCERIN 0.4 MG SL TABS BTL 25'S SL PRN ×4 (04:14→21:19)
[2018-04-14 04:20] LABS: BASOPHILS % (AUTO) 1 % (0-10); EOSINOPHILS # (AUTO) 0.2 10^3/uL (0.0-0.3); EOSINOPHILS % (AUTO) 4 % (0-10); HEMATOCRIT 43 % (40-54); HEMOGLOBIN 15.3 G/DL (13.3-17.7); LYMPHOCYTES # (AUTO) 1.5 X 10^3 (1.0-4.0); LYMPHOCYTES % (AUTO) 25 % (12-44); MEAN CORPUSCULAR HEMOGLOBIN 31 PG (25-34); MEAN CORPUSCULAR HGB CONC 36 G/DL (32-36); MEAN CORPUSCULAR VOLUME 85 FL (80-99); MEAN PLATELET VOLUME 10.4 FL (7.4-10.4); MONOCYTES # (AUTO) 0.7 X 10^3 (0.0-1.0); MONOCYTES % (AUTO) 12 % (0-12); NEUTROPHILS # (AUTO) 3.4 X 10^3 (1.8-7.8); NEUTROPHILS % (AUTO) 59 % (42-75); PLATELET COUNT 345 10^3/uL (130-400); RED BLOOD COUNT 4.98 10^6/uL (4.35-5.85); RED CELL DISTRIBUTION WIDTH 12.6 % (10.0-14.5); WHITE BLOOD COUNT 5.9 10^3/uL (4.3-11.0)
[2018-04-14 04:39] LABS: ALANINE AMINOTRANSFERASE 22 U/L (0-55); ALBUMIN 4.5 GM/DL (3.2-4.5); ALKALINE PHOSPHATASE 74 U/L (40-136); BILIRUBIN,TOTAL 1.1 MG/DL (0.1-1.0); BUN/CREATININE RATIO 18; CALCIUM 10.1 MG/DL (8.5-10.1); CARBON DIOXIDE 20 MMOL/L (21-32); CHLORIDE 105 MMOL/L (98-107); GFR ESTIMATED > 60; GLUCOSE 116 MG/DL (70-105); LIPASE 12 U/L (8-78); MAGNESIUM 2.1 MG/DL (1.8-2.4); POTASSIUM 3.9 MMOL/L (3.6-5.0); SODIUM 138 MMOL/L (135-145)
[2018-04-14 04:43] LABS: INR 1.1 (0.8-1.4); PROTHROMBIN TIME PATIENT 13.7 SEC (12.2-14.7)
[2018-04-14 04:46] LABS: MYOGLOBIN SERUM 24.9 NG/ML (10.0-92.0)
--- NOTE | 2018-04-14 07:03 | Diagnostic Imaging Report ---
PATIENT HISTORY: Chest pain. TECHNIQUE: Single frontal view of the chest COMPARISON: 04/25/2014 FINDINGS: Lung volumes are normal. No focal consolidation is seen. There is no pleural effusion or pneumothorax. The cardio mediastinal silhouette is normal in size and contour. No acute osseous abnormality is seen. IMPRESSION: No acute pulmonary abnormality. Dictated by: Dictated on workstation # [id number]
[2018-04-14] MEDS ORDERED: CATHETER FLUSH 10 ML SYR IV PRN (07:15)
[2018-04-14] MEDS: ASPIRIN E.C. 81 MG (ECOTRIN) TAB PO SCH (08:17)
[2018-04-14] MEDS ORDERED: lisINopril 5 MG (PRINIVIL) TABLET PO SCH (09:00)
[2018-04-14] MEDS ORDERED: cloNIDine 0.2 MG (CATAPRES) TAB PO SCH (09:00)
[2018-04-14] MEDS ORDERED: meTOprolol TARTRATE 25 MG (LOPRESSOR) TABLET PO SCH (09:00)
[2018-04-14] MEDS ORDERED: CIPR500T4 PO (09:03)
[2018-04-14] MEDS ORDERED: ONDA4TAB11 PO (09:03)
[2018-04-14] MEDS ORDERED: IBUP-30 PO (09:10)
--- NOTE | 2018-04-14 09:13 | Consultation-Cardiology ---
HPI-Cardiology Cardiology Consultation: Date of Consultation 04/14/18 Date of Admission Attending Physician Lauren Salmon MD Admitting Physician Manish Fields MD Consulting Physician Sofi SAWYER MD HPI: Time Seen by Provider: 09:30 Chief Complaint: Chest pain This is a 68-year-old gentleman who has been complaining of chest and since last evening. Worse intensity 68/10. No radiation. No exacerbating or relieving factors. No associated shortness of breath. He does not smoke. Denies diabetes. Does not know about his cholesterol status. Also has history of hypertension and prostate CA. Review of Systems-Cardiology Review of Systems Constitutional: As described under HPI; No As described under HPI, No no symptoms reported, No chills, No fever, No lightheadedness Eyes: No As described under HPI, No no symptoms reported, No blindness, No blurred vision, No contact lenses, No drainage, No decreased acuity, No foreign body sensation, No pain, No vision change Ears/Nose/Throat: No As described under HPI, No no symptoms reported, No chronic hearing loss, No ear discharge, No ear pain, No nasal drainage, No ulcerations Respiratory: No no symptoms reported; As described under HPI; No As described under HPI, No cough, No orthopnea, No shortness of breath, No SOB with excertion Cardiovascular: No no symptoms reported; As described under HPI; No As described under HPI; chest pain; No edema, No irregular heart rate, No lightheadedness, No palpitations Gastrointestinal: No no symptoms reported, No As described under HPI, No abdomen distended, No abdominal pain, No blood streaked bowels, No constipation , No diarrhea, No nausea, No vomiting, No stool coloration changes Genitourinary: No As described under HPI, No burning, No dysuria, No discharge , No frequency, No flank pain, No hematuria, No urgency Skin: No rash, No skin related problems, No ulcerations Psychiatric/Neurological: No anxiety, No depression, No seizure, No focal weakness, No syncope Hematologic: No bleeding abnormalities [id number]-[id number] Hx Patient Social History Alcohol Use: Denies Use Recreational Drug Use: No Smoking Status: Former Smoker Recent Foreign Travel: No Recent Infectious Disease Expo: No Physical Abuse Screen: No Sexual Abuse: No Immunizations Up To Date Tetanus Booster (TDap): Unknown Past Medical History PMH As described under Assessment. Family Medical History Family History: Hypertension 19 FATHER Allergies and Home Medications Allergies Coded Allergies: morphine (Verified Allergy, Unknown, NAUSEA, 04/04/18) sulfamethoxazole (Verified Allergy, Unknown, hives, 04/04/18) trimethoprim (Verified Allergy, Unknown, hives, 04/04/18) Home Medications Ciprofloxacin HCl 500 Mg Tablet, 500 MG PO BID, (Reported) 7 DAY THERAPY FILLED 04-08-18 Clonidine HCl 0.2 Mg Tablet, 0.1 MG PO BID, (Reported) TAKES 1/2 (0.2MG) TABLET Ibuprofen 200 Mg Tablet, 400-800 MG PO TID PRN for PAIN-MILD, (Reported) Ondansetron 4 Mg Tab.rapdis, 4-8 MG PO Q4H PRN for NAUSEA/VOMITING-1ST LINE, ( Reported) Propranolol HCl 20 Mg Tablet, 20 MG PO DAILY PRN for PALPITATIONS, (Reported) Patient Home Medication List Home Medication List Reviewed: Yes Physical Exam-Cardiology Physical Exam Vital Signs/I&O 04/14/18 04/14/18 04/14/18 04/14/18 03:50 03:50 03:50 04:13 Temp 98.2 98.2 Pulse 61 Resp 14 B/P (MAP) 239/125 (163) Pulse Ox 99 99 O2 Delivery Room Air Room Air Room Air 04/14/18 04/14/18 04/14/18 04/14/18 04:16 06:25 07:00 07:00 Temp 98.2 98.0 Pulse 46 53 52 Resp 14 B/P (MAP) 150/77 (163) 155/82 (106) Pulse Ox 97 98 O2 Delivery Room Air 04/14/18 04/14/18 04/14/18 04/14/18 07:15 07:20 07:30 07:45 Pulse 53 53 53 B/P (MAP) 144/78 (100) 134/80 (98) 135/79 (97) Pulse Ox 98 98 98 98 O2 Delivery Room Air 04/14/18 04/14/18 04/14/18 04/14/18 08:00 08:15 08:30 08:45 Pulse 53 62 57 57 B/P (MAP) 135/82 (99) 152/95 (114) 150/85 (106) 153/79 (103) Pulse Ox 98 98 98 98 7/30/18 7/30/18 7/30/18 7/30/18 09:00 09:32 10:00 11:00 Pulse 57 57 55 55 B/P (MAP) 143/74 (97) 184/95 (124) 146/95 (112) 177/95 (122) Pulse Ox 98 98 98 98 04/14/18 04/14/18 04/14/18 04/14/18 12:00 12:59 13:06 13:58 Temp 99.2 Pulse 65 101 63 Resp 17 B/P (MAP) 204/114 (144) 196/132 (153) 194/94 (127) Pulse Ox 99 96 97 O2 Delivery Room Air Room Air Capillary Refill : Less Than 3 Seconds Constitutional: appears stated age, AAO x 3; No apparent distress; well- developed, well-nourished HEENT: PERRL; No normal ENT inspection, No TMs normal, No pharynx normal, No scleral icterus (R), No scleral icterus (L), No pale conjunctivae (R), No pale conjunctivae (L), No photophobia, No TM abnormal (R), No TM abnormal (L), No pharyngeal erythema, No tonsillar exudate, No other, No discharge, No EOMI; hearing is well preserved; No hard of hearing; oral hygience is good; No ulceration, No xanthelasmas are seen Neck: No non-tender, No full range of motion, No supple, No normal inspection, No carotid bruit, No limited range of motion, No lymphadenopathy (R), No lymphadenopathy (L), No tender lateral, No tender midline, No thyromegaly, No other; carotid pulses are 2 + bilaterally; No with good upstrokes Respiratory: No accessory muscle use, No respiratory distress, No chest tender , No chest expansion is symmetric; chest is bilaterally symmetric; No lungs clear to percussion; lungs clear to auscultation; No crackles, No rhonchi, No rales, No stridor, No wheezing, No pleural rub, No other Cardiovascular: regular rate-rhythm; No irregularly irregular, No extra beats, No parasternal heave is noted, No JVD, No edema, No bradycardia, No tachycardia , No point of maximal impulse, No cardiac thrills are palpable; S1 and S2; No gallop/S3, No gallop/S4, No diastolic murmur, No systolic murmur, No friction rub, No click, No other Gastrointestinal: No tender, No soft, No round, No distended, No pulsatile mass , No organomegaly, No guarding, No rebound, No tenderness, No hernia, No mass, No audible bowel sounds, No abnormal bowel sounds, No abdominal bruits, No spleenomegaly, No other Rectal: deferred Extremities: No normal range of motion, No non-tender, No normal inspection, No pedal edema, No calf tenderness, No normal capillary refill, No pelvis stable , No calf tenderness, No inflammation, No pedal edema, No slow capillary refill , No swelling, No other, No abrasion, No clubbing, No cyanosis, No ecchymosis, No laceration, No no lower extremity edema bilateral, No significant edema, No tenderness, No wound Neurologic/Psychiatric: no motor/sensory deficits, alert, normal mood/affect, oriented x 3, power is 5/5 both on sides Skin: No normal color, No warm/dry, No cyanosis, No cool, No diaphoresis, No damp, No ecchymosis, No jaundice, No mottled, No pallor, No rash, No tattoos/ piercings, No ulcerations, No rash on exposed areas, No ulcerations on exposed areas, No other Data Review Labs Laboratory Tests 04/14/18 04:12: White Blood Count 5.9, Red Blood Count 4.98, Hemoglobin 15.3, Hematocrit 43, Mean Corpuscular Volume 85, Mean Corpuscular Hemoglobin 31, Mean Corpuscular Hemoglobin Concent 36, Red Cell Distribution Width 12.6, Platelet Count 345, Mean Platelet Volume 10.4, Neutrophils (%) (Auto) 59, Lymphocytes (%) (Auto) 25 , Monocytes (%) (Auto) 12, Eosinophils (%) (Auto) 4, Basophils (%) (Auto) 1, Neutrophils # (Auto) 3.4, Lymphocytes # (Auto) 1.5, Monocytes # (Auto) 0.7, Eosinophils # (Auto) 0.2, Basophils # (Auto) 0.0, Prothrombin Time 13.7, INR Comment 1.1, Activated Partial Thromboplast Time 33, Sodium Level 138, Potassium Level 3.9, Chloride Level 105, Carbon Dioxide Level 20L, Anion Gap 13 , Blood Urea Nitrogen 14, Creatinine 0.80, Estimat Glomerular Filtration Rate > 60, BUN/Creatinine Ratio 18, Glucose Level 116H, Calcium Level 10.1, Magnesium Level 2.1, Total Bilirubin 1.1H, Aspartate Amino Transf (AST/SGOT) 16, Alanine Aminotransferase (ALT/SGPT) 22, Alkaline Phosphatase 74, Myoglobin 24.9, Troponin I < 0.30, Total Protein 7.0, Albumin 4.5, Lipase 12 04/14/18 09:45: Troponin I < 0.30, Triglycerides Level 60, Cholesterol Level 185, LDL Cholesterol Direct 134H, VLDL Cholesterol 12, HDL Cholesterol 44 ECG Impression ECG Initial ECG Rhythm: Normal Sinus A/P-Cardiology Assessment/Admission Diagnosis Chest pain, Hyperlipidemia, Hypertension, Prostate cancer Plan Chest pain: Acute coronary syndrome will be ruled out with serial troponin. EKG is negative. Request echocardiogram and nuclear stress test. Hyperlipidemia: LDL is 134. Will start statin therapy. Hypertension: Significantly elevated. We will add further antihypertensive agents. Prostate cancer: Deferred to the primary team. Thank you for your consultation. Please call me if you have any questions. Boubacar Sawyer MD, FACP, FACC, FSCAI, FHRS, CCDS Interventional Cardiology Cardiac Electrophysiology Vascular Medicine and Endovascular Interventions Clinical Quality Measures AMI/AHF: ASA po Prior to arrival: No DVT/VTE Risk/Contraindication: Risk Factor Score Per Nursin RFS Level Per Nursing on Admit: 2=Moderate Sofi SAWYER MD Apr 14, 2018 9:13 am
[2018-04-14] MEDS ORDERED: lisINopril 20 MG (PRINIVIL) TABLET PO SCH (09:30)
[2018-04-14 10:29] LABS: CHOLESTEROL 185 MG/DL (< 200); HDL CHOLESTEROL 44 MG/DL (40-60); TRIGLYCERIDES 60 MG/DL (<150); VLDL CHOLESTEROL 12 MG/DL (5-40)
[2018-04-14] MEDS ORDERED: REGADENOSON 0.4 MG/5 ML SYR (LEXISCAN) IV ONE ×2 (12:53→13:00)
[2018-04-14] MEDS: CATHETER FLUSH 10 ML SYR IV SCH ×2 (14:07→20:01)
[2018-04-14] MEDS: amLODIPine 10 MG (NORVASC) TAB PO SCH (14:19)
--- NOTE | 2018-04-14 14:29 | Cardiology Stress Test Report ---
Stress Test Report Type of NM Stress Test: Test Type: LEXISCAN 0.4MG/5ML Date of Procedure/Referring: Date of Procedure: Apr 14, 2018 PCP Lauren Salmon MD Admitting Physician Manish Fields MD Indications: Chest pain Baseline Heart Rate: 64 Baseline Blood Pressure: Blood Pressure Systolic: 184 Blood Pressure Diastolic: 101 Baseline EKG: Baseline EKG: sinus rhythm Summary & Conclusion: Summary: The patient was brought to the stress lab after informed consent was taken. Stress test was performed according to the Lexiscan protocol. 0.4 mg of IV Lexiscan was given. Low-grade exercise was performed. Baseline EKG showed sinus rhythm at 64 BPM. Initial blood pressure was 184/101 mmHg. Maximum heart rate was 115 bpm and blood pressure 196/132 mmHg. Patient did not have any chest pain, arrhythmias or ST segment changes during the stress test. 10.26 mCi of Myoview were given for rest imaging and 30.4 mCi of Myoview given for stress imaging. Transient ischemic dilatation score 0.99, EF 71 percent. Normal wall motion. Normal myocardial perfusion imaging during rest and stress. Conclusion: Pharmacological stress test was negative for ischemia. Severe hypertension. Normal LV function with no wall motion abnormalities. Normal myocardial perfusion imaging during rest and stress. Sofi HENDRIX MD Apr 14, 2018 2:29 pm
--- NOTE | 2018-04-14 15:51 | Progress Note-Hospitalist ---
Subjective HPI/CC On Admission Time Seen by Provider: 15:20 The patient is a 68-year-old white male who reported that he began to have chest pain in the early hours after midnight. He ultimately came to the emergency room and was evaluated and admitted for observation and further workup. Reports that he has had hypertension for some time. While on vacation on March 23 near [facility] he became unable to urinate. A catheter was placed which relieved this however he was noted be severely hypertensive and has continued to be so. He had prostate surgery at this institution following his return home and reports that his urinary abilities are much improved however the hypertension has continued. His medications were clonidine and propranolol although he had not taken the propranolol for several weeks. He underwent echocardiogram and stress testing earlier today which are reported normal however he remains severely hypertensive and medications are being adjusted. Objective Exam Vital Signs Capillary Refill : Less Than 3 Seconds General Appearance: No Apparent Distress, WD/WN HEENT: Normal ENT Inspection Neck: Normal Inspection Respiratory: Chest Non Tender, Lungs Clear, Normal Breath Sounds, No Accessory Muscle Use, No Respiratory Distress Cardiovascular: Regular Rate, Rhythm, No Edema, No Gallop, No JVD, No Murmur, Normal Peripheral Pulses Gastrointestinal: Normal Bowel Sounds, No Organomegaly, No Pulsatile Mass, Non Tender, Soft Neurologic/Psychiatric: Alert, Oriented x3, No Motor/Sensory Deficits, Normal Mood/Affect Skin: Normal Color Lymphatic: No Adenopathy Results/Procedures Lab Patient resulted labs reviewed. Assessment/Plan Assessment and Plan Assess & Plan/Chief Complaint 1.severe hypertension. 2.recent obstructive uropathy now post intervention on prostate. Plan continue adjustment of antihypertensives Clinical Quality Measures AMI/AHF: ASA po Prior to arrival: No DVT/VTE Risk/Contraindication: Risk Factor Score Per Nursin RFS Level Per Nursing on Admit: 2=Moderate AARTI WILKINSON MD Apr 14, 2018 15:51
[2018-04-14] MEDS ORDERED: lisINopril 20 MG (PRINIVIL) TABLET PO NR (16:30)
[2018-04-14] MEDS: LORazepam 0.5 MG (ATIVAN) TABLET PO PRN (16:32)
[2018-04-14] MEDS: hydrALAZINE (APRESOLINE) 25 MG TAB PO SCH (18:32)
[2018-04-14] MEDS: ATORVASTATIN 20 MG (LIPITOR) TABLET PO SCH (20:01)
[2018-04-14] MEDS ORDERED: ATORVASTATIN 20 MG (LIPITOR) TABLET PO SCH (21:00)
[2018-04-14] MEDS ORDERED: ATORVASTATIN 40 MG (LIPITOR) TABLET PO SCH (21:00)
[2018-04-15] VITALS (27 sets, daily range): BP systolic 101–186; BP diastolic 50–115
[2018-04-15] MEDS: LORazepam 0.5 MG (ATIVAN) TABLET PO PRN ×2 (00:38→10:06)
[2018-04-15] MEDS: NITROGLYCERIN 0.4 MG SL TABS BTL 25'S SL PRN ×3 (01:07→11:23)
[2018-04-15] MEDS: hydrALAZINE (APRESOLINE) 25 MG TAB PO SCH (02:59)
[2018-04-15] MEDS: CATHETER FLUSH 10 ML SYR IV SCH ×3 (06:09→23:24)
[2018-04-15] MEDS ORDERED: NS 250 ML (IVPB) BAG IV ONE (07:45)
[2018-04-15] MEDS ORDERED: IOHEXOL 350 MG/ML 150 ML (OMNIPAQUE 350) VIAL IV ONE (07:45)
[2018-04-15] MEDS ORDERED: RECEIVED CONTRAST (Hold Metformin) IV SCH (08:00)
--- NOTE | 2018-04-15 08:35 | Diagnostic Imaging Report ---
PROCEDURE: CT angiography of the chest with contrast. TECHNIQUE: Multiple contiguous axial images were obtained through the chest after uneventful bolus administration of intravenous contrast. Reconstructed CTA MIP acquisitions were also performed. INDICATION: Hypertension. Chest pain. COMPARISON: None. FINDINGS: There is no evidence of acute pulmonary embolus to the first subsegmental division of the pulmonary arteries. The thoracic aorta is normal in course and caliber. Note is made of minimal calcified atherosclerosis involving the inferior margins of the arch (image 48, series 2). There is no evidence of aneurysm, dissection, or focal stenosis. The heart size is within normal limits. There is no large pericardial effusion. No pathologically enlarged or morphologically abnormal adenopathy is seen within the mediastinum, elvin, or axillae. Evaluation of the lung windows demonstrates no focal consolidation, pleural effusion, or pneumothorax. There is a single 6 mm subpleural micronodule within the posterior margins of the right lower lobe (image 93, series 2). The osseous structures show no acute abnormalities. Multilevel degenerative changes are noted. No lytic or blastic bony lesions are seen. The included portions of the upper abdomen show a benign-appearing right hepatic cyst. A few punctate hepatic hypoenhancing rounded foci are also noted and may represent cysts but are too small to adequately characterize based on this exam. IMPRESSION: 1. No CT evidence of acute pulmonary embolus to the first subsegmental division of the pulmonary arteries. 2. Minimal calcified atherosclerosis of the thoracic aorta but no evidence of dissection. 3. Single 6 mm micronodule within the right lower lobe. Please see below for followup recommendations. PULMONARY NODULE FOLLOW-UP Single nodule: <6 mm: * Low risk patient - no routine follow up * High risk patient - optional at 12 months 6-8 mm in size: * Low risk patient - Ct at 6-12 months, then consider at 18-24 months * High risk patient - Ct at 6-12 months, then at 18-24 months >8 mm * Low risk patient - consider CT at 3 months, PET/CT or tissue sampling * High risk patient - consider CT at 3 months, PET/CT, or tissue sampling (Certain patients at high risk with suspicious nodule morphology, upper lobe location, or both may warrant 12-month follow-up) Dictated by: Dictated on workstation # [id number]
[2018-04-15] MEDS: lisINopril 20 MG (PRINIVIL) TABLET PO SCH (09:12)
[2018-04-15] MEDS: amLODIPine 10 MG (NORVASC) TAB PO SCH (09:12)
[2018-04-15] MEDS: ASPIRIN E.C. 81 MG (ECOTRIN) TAB PO SCH (09:13)
[2018-04-15] MEDS ORDERED: hydrALAZINE (APRESOLINE) 25 MG TAB PO SCH (10:00)
[2018-04-15] MEDS ORDERED: PANTOPRAZOLE 40 MG/10 ML (PROTONIX) VIAL IV SCH (10:00)
--- NOTE | 2018-04-15 10:18 | Diagnostic Imaging Report ---
US DOPPLER ABD COMPLETE [id number] Technique: Multi-projectional grayscale, color Doppler and spectral duplex imaging of the bilateral kidneys and renal vasculature was performed. Indication: Hypertension. Comparison: None available. FINDINGS: Right side: Right kidney is normal in size measuring 11 cm. There is no hydronephrosis or suspicious mass lesion. Anechoic cyst in the upper pole of the right kidney measures up to 5.4 cm in maximal diameter. The following measurements were made for the right renal vasculature and/or as follows: Main renal artery: The proximal and mid aspects of the main renal artery are obscured by overlying bowel gas. Color Doppler imaging shows normal direction of flow within the distal main renal artery. There are normal low resistant arterial waveforms with normal acceleration index. Maximal peak systolic velocity is 71 cm/s. Interlobular/arcuate arteries: Normal low resistance arterial waveforms on spectral analysis. PSV:Aorta : 0.8 Left side: Left kidney is normal in size measuring 12 cm. There is no hydronephrosis or suspicious mass lesion. The following measurements were made for the left renal vasculature and/or as follows: Main renal artery: The proximal aspect of the main renal artery is obscured by overlying bowel gas. The mid and distal left renal artery shows normal direction of flow on color Doppler imaging. Spectral analysis shows normal low resistant arterial waveforms without elevated velocities. Maximal peak systolic velocity is 87 cm/s. Interlobular/arcuate arteries: Normal low resistant arterial waveforms on spectral analysis. PSV:Aorta : 1.0 Urinary bladder is normally distended and without focal wall thickening. IMPRESSION: 1. No evidence of hemodynamically significant renal artery stenosis. Abnormal Parameters: PSV > 200 cm/s PSV:Aorta > 3.5 Acceleration Index < 300 cm/sec2 Acceleration time > 70 msec Dictated by: Dictated on workstation # [id number]
--- NOTE | 2018-04-15 14:42 | History & Physical-Hospitalist ---
History of Present Illness HPI/Chief Complaint The patient is a 68-year-old white male who reported that he began to have chest pain in the early hours after midnight. He ultimately came to the emergency room and was evaluated and admitted for observation and further workup. Reports that he has had hypertension for some time. While on vacation on March 23 near [facility] he became unable to urinate. A catheter was placed which relieved this however he was noted be severely hypertensive and has continued to be so. He had prostate surgery at this institution following his return home and reports that his urinary abilities are much improved however the hypertension has continued. His medications were clonidine and propranolol although he had not taken the propranolol for several weeks. He underwent echocardiogram and stress testing earlier today which are reported normal however he remains severely hypertensive and medications are being adjusted. Date Seen 04/15/18 Time Seen by Provider: 14:42 Attending Physician Lauren Salmon MD PCP Manish Fields MD Referring Physician Date of Admission Apr 14, 2018 at 06:45 Home Medications & Allergies Home Medications Reviewed patient Home Medication Reconciliation performed by pharmacy medication reconciliations geoscience technician and/or nursing. Patients Allergies have been reviewed. Allergies Allergies Coded Allergies hydralazine (Verified Allergy, Intermediate, CHEST DISCOMFORT, SHORTNESS OF BREATH, NAUSEA, , 04/15/18) morphine (Verified Allergy, Unknown, NAUSEA, 04/04/18) sulfamethoxazole (Verified Allergy, Unknown, hives, 04/04/18) trimethoprim (Verified Allergy, Unknown, hives, 04/04/18) Past Eacyswh-Jrzxqz-Ntonjy Hx Past Med/Social Hx: Reviewed Nursing Past Med/Soc Hx Patient Social History Alcohol Use: Denies Use Recreational Drug Use: No Smoking Status: Former Smoker Former Smoker, Quit: Apr 04, 1979 Physical Abuse Screen: No Sexual Abuse: No Recent Foreign Travel: No Contact w/other who traveled: No Recent Hopitalizations: No Recent Infectious Disease Expo: No Immunizations Up To Date Tetanus Booster (TDap): Unknown Pediatric: Yes Seasonal Allergies Seasonal Allergies: No Past Medical History Cardiac: Hypertension Genitourinary: Benign Prostatic Hyperpl, Prostate Problems, Kidney Stones Psychosocial: Anxiety History of Blood Disorders: No Family History Hypertension 21 FATHER Review of Systems Constitutional: see HPI EENTM: no symptoms reported Respiratory: no symptoms reported Cardiovascular: chest pain Gastrointestinal: no symptoms reported Genitourinary: other (recent acute obstruction followed by surgical reduction of prostate.) Musculoskeletal: no symptoms reported Skin: no symptoms reported Psychiatric/Neurological: No Symptoms Reported, Anxiety Physical Exam Physical Exam Vital Signs Capillary Refill : Less Than 3 Seconds Height, Weight, BMI Height: 5'10.00" Weight: 169lbs. 5.0oz. 76.643739vc; 24.3 BMI Method:Stated General Appearance: Anxious Eyes: Bilateral Eye Normal Inspection HEENT: Normal ENT Inspection Neck: Full Range of Motion, Normal Inspection, Non Tender, Supple, Carotid Bruit Respiratory: Chest Non Tender, Lungs Clear, Normal Breath Sounds, No Accessory Muscle Use, No Respiratory Distress Cardiovascular: Regular Rate, Rhythm, No Edema, No Gallop, No JVD, No Murmur, Normal Peripheral Pulses Gastrointestinal: Normal Bowel Sounds, No Organomegaly, No Pulsatile Mass, Non Tender, Soft Back: Normal Inspection, No CVA Tenderness, No Vertebral Tenderness Extremity: Normal Capillary Refill, Normal Inspection, Normal Range of Motion, Non Tender, No Calf Tenderness, No Pedal Edema Neurologic/Psychiatric: Alert, Oriented x3, No Motor/Sensory Deficits, Normal Mood/Affect Skin: Normal Color, Warm/Dry Lymphatic: No Adenopathy Results Results/Procedures Labs Patient resulted labs reviewed. Assessment/Plan Admission Diagnosis Chest pain. 2.recent prostate surgery with diagnosis of prostate cancer. 3.severe hypertension. 4.anxiety Admission Status: Observation Clinical Quality Measures AMI/AHF: ASA po Prior to arrival: No DVT/VTE Risk/Contraindication: Risk Factor Score Per Nursin RFS Level Per Nursing on Admit: 2=Moderate AARTI WILKINSON MD Apr 15, 2018 14:42
[2018-04-15] MEDS ORDERED: HYDROCHLOROTHIAZIDE 25 MG (HCTZ) TAB PO NR (14:45)
--- NOTE | 2018-04-15 14:48 | Progress Note-Hospitalist ---
Progress Note Progress Notes/Assess & Plan Date Seen 04/15/18 Time Seen by Provider: 14:43 Assessment & Plan The patient exhibited the a couple of episodes of chest pain through the night. He had been placed on a relatively high dose of hydralazine. On his third dose at approximately 10 00 he exhibited tachycardia flushing and chills. This seems to be passing at this point. The hydralazine will be discontinued. Some options are limited as he has had previous difficulties with several blood pressure medicines. The beta jethro earlier yesterday dropped his pulse into the 40s. Physical exam: his face and upper chest are bright red in color. Lungs are clear to auscultation. CV is regular. Impression: Recurrent chest pain presumably non-cardiac. CT angiogram showed no evidence of dissecting thoracic aortic aneurysm. 2.severe hypertension. 3.recent diagnosis prostate carcinoma. Plan: No dismissal today. FILIBERTO hydralazine. Addhydrochlorothiazide. AARTI WILKINSON MD Apr 15, 2018 14:47
[2018-04-15] MEDS ORDERED: LORazepam 0.5 MG (ATIVAN) TABLET PO PRN (15:00)
[2018-04-15] MEDS: LORazepam 0.5 MG (ATIVAN) TABLET PO SCH (21:04)
[2018-04-15] MEDS: ATORVASTATIN 20 MG (LIPITOR) TABLET PO SCH (21:07)
--- NOTE | 2018-04-15 21:30 | Cardiology Progress Note ---
Cardiology SOAP Progress Note Subjective: Complained of chest pain again. Objective: I&O/Vital Signs 04/15/18 04/15/18 04/15/18 04/15/18 10:00 10:59 11:04 11:17 Pulse 102 94 88 98 Resp 18 20 20 B/P (MAP) 181/115 (137) 122/71 (88) 101/66 (78) 129/98 (108) Pulse Ox 96 96 96 O2 Delivery Room Air Room Air Room Air Room Air 04/15/18 04/15/18 04/15/18 04/15/18 11:30 12:00 12:00 13:00 Pulse 81 83 83 Resp 18 B/P (MAP) 104/50 (68) 121/66 (84) Pulse Ox 96 O2 Delivery Room Air Room Air 04/15/18 04/15/18 04/15/18 04/15/18 13:00 14:00 15:00 15:56 Temp 99.9 98.7 Pulse 100 103 97 101 Resp 20 20 B/P (MAP) 147/82 (103) 154/81 (105) 149/79 (102) 153/86 (108) Pulse Ox 96 96 O2 Delivery Room Air Room Air 04/15/18 04/15/18 04/15/18 04/15/18 16:00 17:00 18:00 19:00 Pulse 92 98 91 B/P (MAP) 162/83 (109) 148/94 (112) O2 Delivery Room Air 04/15/18 04/15/18 04/15/18 04/15/18 19:40 20:00 20:00 20:00 Temp 97.4 Pulse 91 90 Resp 18 B/P (MAP) 149/84 (105) 157/85 (109) Pulse Ox 96 98 O2 Delivery Room Air Room Air Room Air 04/15/18 21:00 Pulse 107 B/P (MAP) 150/93 (112) 04/15/18 00:00 Intake Total 700 ml Balance 700 ml Weight (Pounds): 169 Weight (Ounces): 5.0 Weight (Calculated Kilograms): 76.477372 Constitutional: appears stated age, AAO x 3; No apparent distress; well- developed, well-nourished Respiratory: No accessory muscle use, No respiratory distress, No chest tender , No chest expansion is symmetric; chest is bilaterally symmetric; No lungs clear to percussion; lungs clear to auscultation; No crackles, No rhonchi, No rales, No stridor, No wheezing, No pleural rub, No other Cardiovascular: regular rate-rhythm; No irregularly irregular, No extra beats, No parasternal heave is noted, No JVD, No edema, No bradycardia, No tachycardia , No point of maximal impulse, No cardiac thrills are palpable; S1 and S2; No gallop/S3, No gallop/S4, No diastolic murmur, No systolic murmur, No friction rub, No click, No other Gastrointestional: No tender, No soft, No round, No distended, No pulsatile mass, No organomegaly, No guarding, No rebound, No tenderness, No hernia, No mass, No audible bowel sounds, No abnormal bowel sounds, No abdominal bruits, No spleenomegaly, No other Extremities: No normal range of motion, No non-tender, No normal inspection, No pedal edema, No calf tenderness, No normal capillary refill, No pelvis stable , No calf tenderness, No inflammation, No pedal edema, No slow capillary refill , No swelling, No other, No abrasion, No clubbing, No cyanosis, No ecchymosis, No laceration, No no lower extremity edema bilateral, No significant edema, No tenderness, No wound Neurologic/Psychiatric: no motor/sensory deficits, alert, normal mood/affect, oriented x 3, power is 5/5 both on sides Skin: No normal color, No warm/dry, No cyanosis, No cool, No diaphoresis, No damp, No ecchymosis, No jaundice, No mottled, No pallor, No rash, No tattoos/ piercings, No ulcerations, No rash on exposed areas, No ulcerations on exposed areas, No other Results/Procedures: Labs Laboratory Tests 04/14/18 22:00: Troponin I < 0.30 04/15/18 03:15: Troponin I < 0.30 A/P: Assessment/Dx: Chest pain, Hyperlipidemia, Hypertension, Prostate cancer Plan: Chest pain: Acute coronary syndrome will be ruled out with serial troponin. EKG is negative. Normal echocardiogram and nuclear stress testing showed normal myocardial perfusion during stress and rest. However patient had recurrent chest pain. Repeat serial troponin were negative. EKG did not show any acute ST-T wave abnormalities. I have discussed at length with the patient and family. The likelihood of obstructive CAD is very low in presence of negative nuclear stress test however there can be 7 percent chance of balanced ischemia which may show no abnormality on nuclear stress testing. Therefore coronary angiography can be done for recurrent chest pain in presence of risk factors including hyperlipidemia and hypertension. Patient is not very keen in consenting to coronary angiography at this point in time. He has history of acid reflux and we will try Nexium. Chest CT angiography ruled out aortic dissection or pulmonary embolism. Hyperlipidemia: LDL is 134. Will start statin therapy. Hypertension: Better controlled. Amlodipine 10 mg, lisinopril 40 mg. Patient had a reaction to hydralazine therefore will not give any further hydralazine. Prostate cancer: Deferred to the primary team. Anxiety: The patient has significant anxiety and we decided to give Ativan 1 mg 3 times a day. Thank you for your consultation. Please call me if you have any questions. Boubacar Sawyer MD, FACP, FACC, FSCAI, FHRS, CCDS Interventional Cardiology Cardiac Electrophysiology Vascular Medicine and Endovascular Interventions Clinical Quality Measures AMI/AHF: ASA po Prior to arrival: Sofi Ortega MD Apr 15, 2018 9:30 pm
[2018-04-15] MEDS ORDERED: IBUPROFEN TABLET 200 MG TAB PO PRN (23:45)
[2018-04-16] VITALS (7 sets, daily range): BP systolic 151–190; BP diastolic 95–106
[2018-04-16] MEDS: CATHETER FLUSH 10 ML SYR IV SCH ×2 (06:14→13:07)
[2018-04-16] MEDS: lisINopril 20 MG (PRINIVIL) TABLET PO SCH (08:34)
[2018-04-16] MEDS: LORazepam 0.5 MG (ATIVAN) TABLET PO SCH ×2 (08:35→13:07)
[2018-04-16] MEDS: ASPIRIN E.C. 81 MG (ECOTRIN) TAB PO SCH (08:35)
[2018-04-16] MEDS: amLODIPine 10 MG (NORVASC) TAB PO SCH (08:35)
[2018-04-16] MEDS ORDERED: PANTOPRAZOLE 40 MG (PROTONIX) TAB PO SCH (09:00)
--- NOTE | 2018-04-16 10:43 | Progress Note-Hospitalist ---
Subjective HPI/CC On Admission Date Seen by Provider: Apr 16, 2018 Time Seen by Provider: 10:00 The patient is a 68-year-old white male who reported that he began to have chest pain in the early hours after midnight. He ultimately came to the emergency room and was evaluated and admitted for observation and further workup. Reports that he has had hypertension for some time. While on vacation on March 23 near [facility] he became unable to urinate. A catheter was placed which relieved this however he was noted be severely hypertensive and has continued to be so. He had prostate surgery at this institution following his return home and reports that his urinary abilities are much improved however the hypertension has continued. His medications were clonidine and propranolol although he had not taken the propranolol for several weeks. He underwent echocardiogram and stress testing earlier today which are reported normal however he remains severely hypertensive and medications are being adjusted. Objective Exam Vital Signs Vital Signs Date Time Temp Pulse Resp B/P (MAP) Pulse Ox O2 Delivery O2 Flow Rate FiO2 04/16/18 16:00 Room Air 04/16/18 13:00 120 04/16/18 12:56 98.6 20 159/95 (116) 95 04/15/18 00:00 Capillary Refill : Less Than 3 Seconds Results/Procedures Lab Patient resulted labs reviewed. Clinical Quality Measures AMI/AHF: ASA po Prior to arrival: No DVT/VTE Risk/Contraindication: Risk Factor Score Per Nursin RFS Level Per Nursing on Admit: 2=Moderate JILLIAN HALLMAN DO Apr 16, 2018 10:43
[2018-04-16] MEDS ORDERED: SENNA W/DOCUSATE (SENOKOT S) TABLET PO PRN (10:45)
[2018-04-16] MEDS ORDERED: SENNA W/DOCUSATE (SENOKOT S) TABLET PO NR (10:45)
[2018-04-16] MEDS ORDERED: MILK OF MAGNESIA 400 MG/5 ML 30 ML UDC PO PRN (10:45)
[2018-04-16] MEDS ORDERED: MILK OF MAGNESIA 400 MG/5 ML 30 ML UDC PO NR (10:45)
[2018-04-16] MEDS ORDERED: cloNIDine 0.1 MG (CATAPRES) TAB PO SCH (12:45)
--- NOTE | 2018-04-16 14:52 | Cardiology Progress Note ---
Cardiology SOAP Progress Note Subjective: Feels much better with no chest pain. Objective: I&O/Vital Signs 04/16/18 04/16/18 04/16/18 04/16/18 04:00 04:41 07:00 08:30 Temp 98.0 Pulse 103 79 Resp 18 B/P (MAP) 168/95 (119) Pulse Ox 95 O2 Delivery Room Air Room Air Room Air 04/16/18 04/16/18 04/16/18 04/16/18 08:30 08:35 09:34 10:48 Temp 99.3 Pulse 95 108 108 Resp 16 B/P (MAP) 190/98 (128) 183/106 (131) 171/99 (123) Pulse Ox 95 O2 Delivery Room Air Room Air Room Air Room Air 04/16/18 04/16/18 12:56 13:00 Temp 98.6 Pulse 116 120 Resp 20 B/P (MAP) 159/95 (116) Pulse Ox 95 O2 Delivery Room Air 04/16/18 00:00 Intake Total 340 ml Balance 340 ml Weight (Pounds): 170 Weight (Ounces): 5.0 Weight (Calculated Kilograms): 77.478390 Constitutional: appears stated age, AAO x 3; No apparent distress; well- developed, well-nourished Respiratory: No accessory muscle use, No respiratory distress, No chest tender , No chest expansion is symmetric; chest is bilaterally symmetric; No lungs clear to percussion; lungs clear to auscultation; No crackles, No rhonchi, No rales, No stridor, No wheezing, No pleural rub, No other Cardiovascular: regular rate-rhythm; No irregularly irregular, No extra beats, No parasternal heave is noted, No JVD, No edema, No bradycardia, No tachycardia , No point of maximal impulse, No cardiac thrills are palpable; S1 and S2; No gallop/S3, No gallop/S4, No diastolic murmur, No systolic murmur, No friction rub, No click, No other Gastrointestional: No tender, No soft, No round, No distended, No pulsatile mass, No organomegaly, No guarding, No rebound, No tenderness, No hernia, No mass, No audible bowel sounds, No abnormal bowel sounds, No abdominal bruits, No spleenomegaly, No other Extremities: No normal range of motion, No non-tender, No normal inspection, No pedal edema, No calf tenderness, No normal capillary refill, No pelvis stable , No calf tenderness, No inflammation, No pedal edema, No slow capillary refill , No swelling, No other, No abrasion, No clubbing, No cyanosis, No ecchymosis, No laceration, No no lower extremity edema bilateral, No significant edema, No tenderness, No wound Neurologic/Psychiatric: no motor/sensory deficits, alert, normal mood/affect, oriented x 3, power is 5/5 both on sides Skin: No normal color, No warm/dry, No cyanosis, No cool, No diaphoresis, No damp, No ecchymosis, No jaundice, No mottled, No pallor, No rash, No tattoos/ piercings, No ulcerations, No rash on exposed areas, No ulcerations on exposed areas, No other A/P: Assessment/Dx: Chest pain, Hyperlipidemia, Hypertension, Prostate cancer Plan: Chest pain: Acute coronary syndrome will be ruled out with serial troponin. EKG is negative. Normal echocardiogram and nuclear stress testing showed normal myocardial perfusion during stress and rest. However patient had recurrent chest pain. Repeat serial troponin were negative. EKG did not show any acute ST-T wave abnormalities. Chest discomfort could be an allergic response to hydralazine when he became flushed. No further chest pain. No further cardiac testing is required. Chest CT angiography ruled out aortic dissection or pulmonary embolism. Hyperlipidemia: LDL is 134. Will start statin therapy. Hypertension: Still elevated. Amlodipine 10 mg, lisinopril 40 mg. Patient had a reaction to hydralazine therefore will not give any further hydralazine. Patient was previously on clonidine which will restart. Prostate cancer: Deferred to the primary team. Anxiety: The patient has significant anxiety and we decided to give Ativan 1 mg 3 times a day. Thank you for your consultation. Please call me if you have any questions. Boubacar Sawyer MD, FACP, FACC, FSCAI, FHRS, CCDS Interventional Cardiology Cardiac Electrophysiology Vascular Medicine and Endovascular Interventions Clinical Quality Measures AMI/AHF: ASA po Prior to arrival: Sofi Ortega MD Apr 16, 2018 14:51
[2018-04-16] MEDS ORDERED: CLON0.1T PO (15:51)
[2018-04-16] MEDS ORDERED: AMLO10TA2 PO (15:51)
[2018-04-16] MEDS ORDERED: LISI-552 PO (15:51)
--- NOTE | 2018-04-16 16:32 | Discharge Summary-Hospitalist ---
Diagnosis/Chief Complaint Date of Admission Apr 14, 2018 at 14:31 Date of Discharge Discharge Date: Apr 16, 2018 Admission Diagnosis Chest pain. 2.recent prostate surgery with diagnosis of prostate cancer. 3.severe hypertension. 4.anxiety Discharge Diagnosis (1) Chest pain Status: Resolved (2) Hypertensive emergency Status: Acute (3) Anxiety Status: Acute Discharge Summary Discharge Physical Exam Allergies: Coded Allergies: hydralazine (Verified Allergy, Intermediate, CHEST DISCOMFORT, SHORTNESS OF BREATH, NAUSEA, , 04/15/18) morphine (Verified Allergy, Unknown, NAUSEA, 04/04/18) sulfamethoxazole (Verified Allergy, Unknown, hives, 04/04/18) trimethoprim (Verified Allergy, Unknown, hives, 04/04/18) Vitals & I&Os Vital Signs Date Time Temp Pulse Resp B/P (MAP) Pulse Ox O2 Delivery O2 Flow Rate FiO2 04/16/18 16:45 96 16 151/98 95 Room Air 04/16/18 16:00 98.3 04/15/18 00:00 General Appearance: Alert, Oriented X3, Cooperative Respiratory: Clear to Auscultation, Normal Air Movement Cardiovascular: Regular Rate, Normal S1, Normal S2 Psych/Mental Status: Mental Status NL, Mood NL Hospital Course Hospital course: Patient had a lengthy and complex hospital course when he was admitted for hypertensive urgency and chest pain. He underwent CT chest angiogram revealing no pulmonary emboli along with echocardiogram and stress test which revealed no reversible ischemia. Overall his labs remained stable and patient was in the midst of establishing care with Dr. Manish Fields since his doctor in [place] Dr. Beasley had recently left private practice. His anxiety appeared to be a factor involved in the chest pain but hypertension was severe enough to require an overhaul of his home medications and that was done by cardiology. Patient was experiencing a reasonable systolic blood pressure 159 at time of discharge and all the new medications were sent in to his pharmacy. Patient will have a close follow-up with Dr. Manish Fields to establish care. Labs (last 24 hrs) Patient resulted labs reviewed. Discussion & Recommendations Discharge Planning: <30 minutes discharge planning Discharge Home Medications: Active Scripts Active Lisinopril 20 Mg Tablet 40 Mg PO DAILY Amlodipine Besylate 10 Mg Tablet 10 Mg PO DAILY Clonidine HCl 0.1 Mg Tablet 0.1 Mg PO BID Reported Advil (Ibuprofen) 200 Mg Tablet 400-800 Mg PO TID PRN Ondansetron Odt (Ondansetron) 4 Mg Tab.rapdis 4-8 Mg PO Q4H PRN Instructions to patient/family Please see electronic discharge instructions given to patient. Clinical Quality Measures AMI/AHF: ASA po Prior to arrival: No DVT/VTE Risk/Contraindication: Risk Factor Score Per Nursin RFS Level Per Nursing on Admit: 2=Moderate Problem Qualifiers (1) Chest pain: Chest pain type: unspecified Qualified Codes: R07.9 - Chest pain, unspecified JILLIAN HALLMAN DO Apr 16, 2018 16:31
== END 2018-04-16 16:45 | disposition home or self-care (01) | DRG 305 ==
LOC: EDUNIT# 03:48 → ER 03:49 → ICU 04:32 → UNDOADMOB 04:32 → ICU 06:45 → OBSVTOIN 14:31
PROVIDERS: ADMIT Family Medicine; ATTEND Family Medicine
DX: I16.1 Hypertensive emergency (principal); R07.9 Chest pain, unspecified; F41.9 Anxiety disorder, unspecified; C61 Malignant neoplasm of prostate; E78.5 Hyperlipidemia, unspecified; K21.9 Gastro-esophageal reflux disease without esophagitis; Z87.891 Personal history of nicotine dependence; Z87.442 Personal history of urinary calculi
CPT/HCPCS: 36415; 71045; 71275; 78452; 80053; 80061; 83690; 83735; 83874; 84484; 85025; 85610; 85730; 93005; 93017; 93041; 93306; 93975